=== PATIENT | male | born 2000 | race Caucasian/White ===

== ENCOUNTER → 2021-11-25 | Outpatient (CLI) | payer BC | LOC: COL.RAD 11-20 08:00 | DX: M25.551 Pain in right hip (principal) | CPT/HCPCS: J3301; Q9967 ==

== ENCOUNTER → 2022-02-11 | Outpatient (CLI) | payer BC | LOC: COL.RAD 09:11 | DX: M25.551 Pain in right hip (principal) | CPT/HCPCS: J3301; Q9967 ==